=== PATIENT | male | born 1965 | race Caucasian/White ===

== ENCOUNTER 2019-11-08 23:06 | Emergency (ER) | payer OTHER, MEDICAID ==
[~2019-11-08] VITALS: Ht 185.4 cm; Wt 76.0 kg
[2019-11-08 23:12] VITALS: Ht 185.4 cm; Wt 76.0 kg
[2019-11-09 00:14] LABS: BASOPHIL % 1.3 % (0-2); PLATELET COUNT 222 x10^3mcL (130-400); RED CELL DISTRIBUTION WIDTH 14.1 % (11.5-14.5)
[2019-11-09 00:34] LABS: CALCIUM 9.1 mg/dL (8.5-10.1); CARBON DIOXIDE 30.2 mmol/L (21-32); CHLORIDE SERUM 99 mmol/L (98-107); GFR1 > 60 mL/min; GLUCOSE SERUM 84 mg/dL (74-106); POTASSIUM SERUM 3.5 mmol/L (3.5-5.1); SODIUM SERUM 136 mmol/L (136-145)
[2019-11-09 00:38] LABS: ALBUMIN 3.7 g/dL (3.4-5.0); ALKALINE PHOSPHATASE 71 U/L (46-116); ALT/SGPT 27 U/L (16-63); AST/SGOT 27 U/L (15-37); TOTAL PROTEIN, SERUM 6.5 g/dL (6.4-8.2)
[2019-11-09 02:25] LABS: AMPHETAMINE QUAL UR NONE DETECTED (See below)
[2019-11-09 06:42] VITALS: BP 108/63
== END 2019-11-09 06:42 ==
LOC: ED 23:06
PROVIDERS: Emergency Medicine
DX: R45.851 Suicidal ideations (principal); F17.210 Nicotine dependence, cigarettes, uncomplicated; F39 Unspecified mood [affective] disorder
CPT/HCPCS: 36415; G0480